=== PATIENT | female | born 1985 | race Caucasian/White ===

== ENCOUNTER → 2019-10-31 08:24 | Outpatient (CLI) | payer OTHER ==
[~2019-10-31] VITALS: Ht 167.6 cm; Wt 76.2 kg
[2019-10-31 12:23] VITALS: Ht 167.6 cm; Wt 76.2 kg
== END | disposition home or self-care (01) ==
LOC: D.FANS 10-24 13:00
PROVIDERS: ATTEND Family Medicine
DX: E23.2 Diabetes insipidus (principal)